=== PATIENT | male | born 1955 | race Caucasian/White ===

== ENCOUNTER 2023-03-21 08:27 | Outpatient (AMB) | payer MEDICARE, OTHER, SELFPAY ==
--- NOTE | 2023-03-21 08:34 | A.OFFVIS_ITS ---
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 Patient states I met with primary care for the last 4-5 years I found out i have blockeage on right carotid artery,he said that whenn you have a blpcakge it canaffect the memory. Allergies Seasonal Allergies Allergy (Unknown, Verified 03/21/23 08:45) Unknown Medication List - Last Reconciled 03/21/23 by CHILANGO Caldera aspirin 81 mg PO QDAY rosuvastatin 5 mg PO DAILY HPI HPI Comments History of Present Illness Details Right handed 67-yr-old male presents for neurological evaluation of: memory difficulties. PMH includes HLDF and right carotid artery stenosis. Pt reports that he is more forgetful over time. He reports that he is forgetting things that his recently told him. He states he is good with names of people, but noticing more difficulty with people he does not see more regularly. He is able to pay his bills w/o difficulty. 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 Denies frequently repeating himself, losing things. He is active but does not have a exercise routine- had started exercising prior to the pandemic but stopped during the pandemic. As a student, pt was an A student. He completed a bachelor's in psychology. 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 [facility] Surgical History (Updated 03/21/23 @ 08:46 by CHARITY Sofia) [place] teeth extracted Family History (Updated 03/21/23 @ 08:47 by CHARITY Sofia) Father Myocardial infarction Lung cancer Mother Hypertension Social History Alcohol intake: current Patient Tobacco Use Status: Never used Tobacco Review of Systems Const All systems reviewed & are unremarkable except as noted in HPI and below Physical Exam Vital Signs: Last Vital Signs BP 128/84 03/21/23 08:44 BMI result Body Mass Index 23.9 Const General: cooperative and no acute distress Orientation/consciousness: patient oriented x3 HEENT Head: Yes normocephalic Resp Effort & Inspection: normal respiratory effort and able to speak in complete sentences Auscultation: clear to auscultation bilaterally Cardio Other: No carotid bruits appreciated Jugular venous distension: no JVD Rate: regular rate Rhythm: regular rhythm Neuro General: patient oriented x3, CN's II-XI intact bilaterally and deep tendon reflexes 2+ bilaterally Gait exam (Neuro): Normal gait present Motor exam (neuro): 5/5 motor strength present throughout Psych Appearance: grossly normal Mental Status: mental status grossly normal Speech and movement: Normal speech and movement present Affect: normal affect Attitude: cooperative Thought process: Normal thought process present Thought content: Normal thought content present Insight: Good insight present (Psych) Orientation What is the (year) (season) (date) (day) (month)?: year, season, date, day and month Where are we (state) (county) (town or city) (hospital) (floor)?: state, county, town or city, hospital/clinic and floor Registration Name of 3 unrelated objects clearly and slowly, then ask patient to repeat all 3 of them. (1st repeat determines score. Make sure they can repeat all three): object 1, object 2 and object 3 Attention & Calculation (CHOOSE ONE) Spell WORLD backwards (DLROW): 5 letters Recall Ask patient to repeat the 3 items from question #3.: object 1, object 2 and obj ect 3 Language Show patient a wristwatch & ask what it is. Repeat for pencil.: watch and pencil Ask the patient to repeat the phrase 'No ifs, ands, or buts' after you.: correct Ask the patient to 'take a piece of paper with their right hand' 'fold paper in half' 'place paper on floor': take paper in right hand, fold paper in half and place paper on floor Print the sentence 'CLOSE YOUR EYES' on a piece. If patient actually closes eyes then score.: followed written direction Give patient a blank piece of paper & ask to write a sentence. Score if it contains a noun & verb.: sentence contains subject and verb Ask patient to copy figure of intersecting pentagons exactly. Score if all 10 angles & 2 intersects are included.: all 10 angles present & 2 are intersected Score Score: 30 Assessment & Plan Assessment & Plan (1) Poor short-term memory: Comment: Possible normal age-related changes vs MCI vs early vascular dementia Code(s): R41.3 - Other amnesia Plan MMSE 30/30 Good clock drawing- pt did draw hands prior to instructions, but dilan them easily (although hands extended equal lengths) on redirection. Increase physical activity- both strength and aerobic training- pt has previously gone to [facility]. Discussed obtaining brain MRI w/o to assess for intracranial vascular lesions in setting of HLD and right CA stenosis 70%- pt will consider. F/u in 6 months or sooner prn. Coding Level of Care Code New Pt Level 3 (30236) Diagnoses Poor short-term memory R41.3
[2023-03-21 08:44] VITALS: BP 128/84; BMI 23.9
== END 2023-03-21 09:51 | disposition home or self-care (01) ==
PROVIDERS: Visit Provider Nurse Practitioner Family
DX: R41.3 Other amnesia (principal)
CPT/HCPCS: 99203

== ENCOUNTER → 2023-03-21 08:27 | Outpatient (BNVA) | payer MEDICARE, OTHER, SELFPAY | PROVIDERS: Visit Provider Nurse Practitioner Family | DX: R41.3 Other amnesia (principal) | CPT/HCPCS: 99202 ==

== ENCOUNTER 2023-09-23 07:58 | Outpatient (AMB) | payer MEDICARE, OTHER, SELFPAY ==
--- NOTE | 2023-09-23 08:08 | A.OFFVIS_ITS ---
Vital Signs 09/23/23 08:17 Height 6 ft Weight 180 lb BMI 24.4 BP 115/62 Blood Pressure Location Lt brachial Position Sitting Pulse 55 Pulse Source Pulse Oximeter Pulse Oximetry (%) 97 Oxygen Delivery Method Room Air Intake Visit Reasons: 6 mo f/u Memory deficit-LVM Intake Note: Patient presents for 6 months f/u. Focusing on more activities since the weather is getting better. Not to focused on his memory loss. Allergies Seasonal Allergies Allergy (Unknown, Verified 09/23/23 08:17) Unknown HPI Comments Details: 68-yr-old male presents for f/u visit. Pt denies any significant interval medical changes. He has not been noticing his cognition as much- not paying as much attention to whether he is forgetting things as much. He did not increase his activity over the winter. However, he has becoming more physically active since the weather has warmed, he has been more active doing yard work. he is still socially active. He follows w/ vascular- has annual carotid US. [facility] Surgical History [place] teeth extracted Family History Father Myocardial infarction Lung cancer Mother Hypertension Social History Alcohol intake: current Patient Tobacco Use Status: Never used Tobacco Physical Exam Vital Signs: Last Vital Signs Pulse 55 09/23/23 08:17 BP 115/62 09/23/23 08:17 Pulse Ox 97 09/23/23 08:17 Oxygen Delivery Method Room Air 09/23/23 08:17 BMI result Body Mass Index 24.4 Const General: cooperative and no acute distress Orientation/consciousness: patient oriented x3 Resp Effort & Inspection: normal respiratory effort and able to speak in complete sentences Neuro General: patient oriented x3 Cranial nerves: Yes CN's II-XII intact bilaterally Cognition (Neuro): normal cognition Psych Appearance: grossly normal Mental Status: mental status grossly normal Speech and movement: Normal speech and movement present Affect: normal affect Attitude: cooperative Assessment & Plan Assessment & Plan (1) Poor short-term memory: Comment: Possible normal age-related changes vs MCI vs early vascular dementia Code(s): R41.3 - Other amnesia Category: Medical Plan Improved cognition. Previous: MMSE 30/30 Good clock drawing- pt did draw hands prior to instructions, but dilan them easily (although hands extended equal lengths) on redirection. Again increase physical activity- both strength and aerobic training- pt encouraged to find something he enjoys doing and establsih an exericse schedule. He previously went to [place]. Continue social and cognitively stimulating activities. Continue ASA and statin. If cognitive s/s worsen, consider brain MRI w/o to assess for intracranial vascular lesions in setting of HLD and right CA stenosis 70%. F/u w/ vascular sx as scheduled. F/u in 12 months or sooner prn. Coding Level of Care Code Est Pt Level 3 (17668) Diagnoses Poor short-term memory R41.3
[2023-09-23 08:17] VITALS: BP 115/62; PULSE 55; O2SAT 97; BMI 24.4
== END 2023-09-23 08:52 | disposition home or self-care (01) ==
PROVIDERS: PCP Internal Medicine; Visit Provider Nurse Practitioner Family
DX: R41.3 Other amnesia (principal)
CPT/HCPCS: 99213

== ENCOUNTER → 2023-09-23 07:58 | Outpatient (BNVA) | payer MEDICARE, OTHER, SELFPAY | PROVIDERS: PCP Internal Medicine; Visit Provider Nurse Practitioner Family | DX: R41.3 Other amnesia (principal); Z79.82 Long term (current) use of aspirin; Z79.899 Other long term (current) drug therapy | CPT/HCPCS: 99212 ==

== ENCOUNTER 2025-02-15 08:56 | Outpatient (AMB) | payer MEDICARE, OTHER, SELFPAY ==
[2025-02-15 08:59] VITALS: BP 140/60; PULSE 76; O2SAT 98
--- NOTE | 2025-02-15 08:59 | A.OFFVIS_ITS ---
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 Pt denies any significant interval medical changes. He has not been noticing his cognition as much- not paying as much attention to whether he is forgetting things as much. He has increased his physical activity- going to the [facility] twice a week- walking on the treadmill. As well as walking around his town a few miles with his , when the weather is nice. 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 He is sleeping well. He continues to be followed by vascular and yet he is all set to go if he has a home cough he can monitor not worried that it is leg problematic just more that the new mobile check at the [facility] to go as long as it is under 130/90 I am okay ER who knows Cardiology for annual carotid US. He is compliant with aspirin and statin. Most recent carotid duplex ultrasound was reassuring. BP is usually normotensive. April 2025 lipid panel was within normal limits Per [facility] and Cardiology notes: Cardiac Testing: * Exercise stress test 09/03/2022: 96% of MPHR with no chest pain and no ischemic EKG changes with exercise. No sustained arrhythmias during exercise. * Echocardiogram 09/17/2022 showed normal left ventricular size and wall thickness. Normal regional wall motion. LVEF 55 to 60% with normal left ventricular diastolic function. The RV is normal in size and systolic function. No significant valvular disease. * Carotid duplex 05/13/2024 showed minimal plaque with less than 50% stenosis in the left and right ICA. * 04/27/2024 lipid panel: * Cholesterol 172 * Triglycerides 101 * HDL 62 * LDL calculated 90 * VLDL cholesterol calc 20.2 * Non-HDL cholesterol (LDL + VLDL) 110 * Chol/HDL ratio 2.8 * EKG: Encounter Date: 07/22/24 ECG 12 lead Value Ventricular Rate ECG 59 Atrial Rate 59 P-R Interval 164 QRS Duration 80 Q-T Interval 376 QTc 372 P Wave [place] 60 R [place] 80 T [place] 50 ECG Interpretation ? ? Sinus bradycardiaOtherwise normal ECGNo previous ECGs available [facility] Surgical History [place] teeth extracted Family History Father Myocardial infarction Lung cancer Mother Hypertension Social History Alcohol intake: current Patient Tobacco Use Status: Never used Tobacco Physical Exam Vital Signs: Last Vital Signs Pulse 76 02/15/25 08:59 BP 140/60 H 02/15/25 08:59 Pulse Ox 98 02/15/25 08:59 Oxygen Delivery Method Room Air 02/15/25 08:59 Const General: cooperative and no acute distress Resp Effort & Inspection: normal respiratory effort and able to speak in complete sentences Neuro Other: Alert and oriented x3. Only 1 moment of memory lapse, when trying to recall who his vascular medical provider is General: moves all extremities Cranial nerves: Yes CN's II-XII intact bilaterally Cognition (Neuro): normal cognition Gait exam (Neuro): Normal gait present Psych Appearance: grossly normal Mental Status: mental status grossly normal Speech and movement: Normal speech and movement present Affect: normal affect Attitude: cooperative Assessment & Plan Assessment & Plan (1) Poor short-term memory: Comment: Possible normal age-related changes vs MCI vs early vascular dementia Code(s): R41.3 - Other amnesia Category: Medical Plan Patient continues to have improved cognition Previous: * MMSE 30/30 * Good clock drawing- pt did draw hands prior to instructions, but dilan them easily (although hands extended equal lengths) on redirection. Commended for his efforts to increase physical activity in making this a routine part of his weekly schedule. Continue social and cognitively stimulating activities. Today's initial BP was 140/60, on recheck it was 130/70. Patient attributes this to taking a couple of cups of coffee this morning and rushing to get to this appointment. No current shortness of breath or chest pain. Patient advised to monitor BP at home, and to notify PCP or Cardiology if BP is consistently above 130/90 Continue ASA and statin. If cognitive s/s worsen, consider brain MRI w/o to assess for intracranial vascular lesions in setting of HLD and coronary artery stenosis F/u w/ vascular and Cardiology as scheduled. F/u in 12 months or sooner prn. Coding Level of Care Code Est Pt Level 3 (95760) Diagnoses Poor short-term memory R41.3
--- OUTSIDE RECORDS SUMMARY | 2025-02-15 09:45 | XMS_ITS ---
Author Name [facility] Organization Unknown Care Team Organization Name Specialty Phone Email Start Date End Da te [facility] 12/29/2024 [facility] FRANCISCO JAVIER [facility] 01/16/2023 12/29/19 24
--- OUTSIDE RECORDS SUMMARY | 2025-02-15 09:45 | XMS_ITS | Clinical Summary ---
Author Organization [address] [place] [address] Address [address] [place] [address] Phone Care Team Providers Care Product Promoter Sales Person Name Role Phone Brian Wolfe MD Primary Care Provider [phone] Allergies Active Allergy Reactions Criticality Noted Date Comments Other 12/14/2018 Seasonal Medications multivitamin with minerals tablet Take 1 tablet by mouth daily. Active vit B complx/folic acid/lysine (B COMPLEX VITAMINS PO) Take 1 tablet by mouth daily. Active aspirin 81 mg EC tablet Take 1 tablet by mouth daily. Active rosuvastatin (CRESTOR) 5 mg tablet TAKE 1 TABLET BY MOUTH 1 TIME EACH DAY. 90 tablet 1 08/23/2024 Active Active Problems Problem Noted Date Diagnosed Date Carotid artery stenosis 03/13/2018 Overview (02/27/2024): Ultrasound 03/29 Last Assessment & Plan: The patient was found to have mild bilateral carotid artery stenosis on a carotid artery duplex done in March 2022. He will need a follow-up study done around March 2023 in order to evaluate for any progression in his coronary artery duplex. Assessment & Plan (07/22/2024 10:06 AM EDT): Patient has a history of bilateral carotid artery stenosis with recent carotid duplex showing minimal plaque and less than 50% stenosis in the left and right ICA. He was seen by vascular surgery June 2024. At this point, we will continue with annual monitoring and he will continue on aspirin and statin as prescribed. Orders: ECG 12 lead Colon polyp 01/13/2015 Overview (02/27/2024): CN 08/17 - no pathology report in old records Colonoscopy 03/06/17 - 2 descending colon polyps removed, diverticulosis, hemorrhoids; if adenomatous, repeat colonoscopy in 5 years - pathology showed tubular adenoma 01/06/2019 - bright red rectal bleeding for several months, likely hemorrhoidal; sigmoidoscopy to be scheduled Sigmoidoscopy 02/08/2019 - hemorrhoids, diverticulosis, bleeding internal hemorrhoids Onychomycosis 01/13/2015 Hyperlipidemia 11/30/2014 Overview (02/27/2024): Last Assessment & Plan: The patient has a history of hyperlipidemia. His last lipid panel on file from 2018 showed a total cholesterol of 204, triglycerides 96, HDL 59, and LDL 126. He has evidence of mild carotid artery stenosis noted on a recent carotid artery duplex. Therefore, the patient's cholesterol should be aggressively controlled and his LDL target is 70 or below. At this point, we will repeat his lipid panel to evaluate his lipid control and determine if he needs to start the patient on statin therapy. Assessment & Plan (07/22/2024 10:06 AM EDT): Patient has a history of hyperlipidemia. Last fasting lipid panel showed acceptable cholesterol control. We discussed the importance of cholesterol control given his history of carotid artery disease. He will continue to work on healthy lifestyle and diet and continue his current dose of rosuvastatin as prescribed. I have reviewed with the patient the importance of a heart healthy lifestyle which includes eating a low-fat low-salt diet, getting regular exercise, maintaining a healthy weight, not smoking, and following up with routine medical care. Resolved Problems Problem Noted Date Diagnosed Date Resolved Date Dyspnea 08/06/2022 07/22/2024 Overview (02/27/2024): Last Assessment & Plan: The patient has been experiencing exertional dyspnea. He denies any chest pain. The patient does have multiple risk factors for CAD including: Hyperlipidemia, carotid artery stenosis, family history of CAD. As such, we need to consider the possibility that his dizziness is anginal component. Therefore, we will schedule the patient for an exercise stress test to rule out cardiac ischemia as a cause of his symptoms. We will also schedule the patient for an echocardiogram to rule out any underlying structural heart disease as a cause of his symptoms Immunizations Immunization Administration Dates Next Due Tdap Tetanus diptheria acell ular pertussis (Boostrix; Adacel) 7yo and older 03/13/2015 Surgical History Surgery Date Site/Laterality Comments WISDOM TOOTH EXTRACTION PROCEDURE: HISTORICAL WISDOM TEETH EXTRACTION COLONOSCOPY 2007 PROCEDURE: HISTORICAL COLONOSCOPY; COMMENT: ? adenomatous polyp COLONOSCOPY 12/05/2010 PROCEDURE: HISTORICAL COLONOSCOPY; COMMENT: Dr. Bryant - left tics, hemorrhoids. Repeat in 5 years. Medical History Medical History Date Comments Hyperlipidemia 11/30/2014 DX:Hyperlipidemi a Colon polyp 01/13/2015 DX:Colon polyp; COMMENT: IVETH 08/17 - no pathology report in old records Onychomycosis 01/13/2015 DX:Onychomycosis Family History Medical History Relation Name Comments No Known Problems Brother 1 No Known Problems Brother 2 No Known Problems Daughter 1 No Known Problems Daughter 2 Heart attack Father Hypertension Mother Other: Precancerous breast cancer Sister 1 No Known Problems Sister 2 No Known Problems Sister 3 No Known Problems Sister 4 No Known Problems Son Relation Name Status Comments Brother 1 Alive Healthy Brother 2 Alive Healthy Daughter 1 Alive Healthy Daughter 2 Alive Healthy Father (Age 72) Jaw cancer , [place] (age 60) Mother (Age 79) Lung issue , HTN Sister 1 Alive Healthy Sister 2 Alive Healthy Sister 3 Alive Healthy Sister 4 Alive Healthy Son Alive Healthy Social History Tobacco Use Types Packs/Day Years Used Date Smoking Tobacco: Never Smokeless Tobacco: Never Alcohol Use Standard Drinks/Week Comments Yes 0 (1 standard drink = 0.6 oz pur e alcohol) occ Sex and Gender Information Value Date Recorded Sex Assigned at Not on file Legal Sex Male 11:46 AM EST Gender Identity Not on file Sexual Orientation Not on file Obstetrics History Last Filed Vital Signs Vital Sign Reading Time Taken Comments Blood Pressure 118/82 07/22/2024 9:03 AM EDT Pulse 59 07/22/2024 9:03 AM EDT Temperature 36.3 C (97.4 F) 04/14/2024 8:30 AM EST Respiratory Rate - - Oxygen Saturation 98% 07/22/2024 9:03 AM EDT Inhaled Oxygen Concentration - - Weight 82.6 kg (182 lb 1.6 oz) 07/22/2024 9:03 A M EDT Height 182.9 cm (6') 07/22/2024 9:03 AM EDT Body Mass Index 24.7 07/22/2024 9:03 AM EDT Plan of Treatment Upcoming Encounters Date Type Department Care Team (Late st Contact Info) Description 04/18/2025 11:15 AM EST Office Visit Internal Medicine - [place] [address] [place] [address] Brian Wolfe MD [address] [facility] [address] [place] [address] 06/16/2025 9:30 AM EST Office Visit Vascular Surgery - [place] [address] [place] [address] Martha Glasgow MD [address] [place] [phone] Health Maintenance Due Date Last Done Comments Pneumococcal Vaccine: 50+ Years (1 of 1 - PCV) 07/20/2005 Zoster Vaccines (1 of 2) 07/20/2005 Colorectal Cancer Screening: Colonoscopy 03/06/2022 03/06/2017 Social Influencers of Health Screening 04/20/2022 Depression Screening 05/12/2024 10/13/2023 Falls Risk Assessment 10/12/2024 10/13/2023 Medicare Annual Wellness Visit 10/12/2024 10/13/2023 COVID-19 Vaccine (1 - 2023-2 5 season) 2025 Influenza Vaccine (#1) 2025 DTaP,Tdap,and Td Vaccines (2 - Td or Tdap) 03/13/2025 03/13/2015 Cholesterol Screening (Lipid Panel) 04/27/2029 04/27/2024, 03/13/2018 RSV Immunization Adult Patients (1 - 1-dose 75+ series) 07/20/2030 Hepatitis C Screening Completed 06/01/2016 HIB Vaccines Aged Out No longer eligi ble based on patient's age to complete this topic HPV Vaccines Aged Out No longer eligi ble based on patient's age to complete this topic Hepatitis A Vaccines Aged Out No long er eligible based on patient's age to complete this topic Hepatitis B Vaccines Aged Out No long er eligible based on patient's age to complete this topic IPV Vaccines Aged Out No longer eligi ble based on patient's age to complete this topic MMR Vaccines Aged Out No longer eligi ble based on patient's age to complete this topic Meningococcal ACWY Vaccine Aged Out N o longer eligible based on patient's age to complete this topic Meningococcal B Vaccine Aged Out No l onger eligible based on patient's age to complete this topic RSV Immunization Patients Under 20 months Aged Out No longer eligible b ased on patient's age to complete this topic Varicella Vaccines Aged Out No longer eligible based on patient's age to complete this topic Procedures Procedure Name Priority Date/Time Associated Diagnosis Comments LIPID PANEL WITH REFLEX TO DIRECT LDL Routine 04/27/2024 8:26 AM EST Stenosis of carotid artery, unspecified laterality Pure hypercholesterolemia DEPRESSION SCREENING Routine 10/13/2023 FALLS RISK ASSESSMENT Routine 10/13/2023 COLONOSCOPY Routine 03/06/2017 HEPATITIS C SCREENING Routine 06/01/2016 from Last 3 Months or Most Recently Relevant to Health Maintenance Results * Lipid panel with reflex to direct LDL (04/27/2024 8:26 AM EST) Cholesterol 172 0 - 200 mg/dL LAB CHEMISTRY METHOD 04/27/2024 10:07 AM EST [facility] Triglycerides 101 0 - 150 mg/dL LAB CHEMISTRY METHOD 04/27/2024 10:07 AM EST [facility] HDL 62 >=40 mg/dL LAB CHEMISTRY METHOD 04/27/2024 10:07 AM EST [facility] LDL Calculated 90 0 - 100 mg/dL LAB CHEMISTRY METHOD 04/27/2024 10:07 AM [facility] VLDL Cholesterol Hany 20.2 mg/dL LAB CHEMISTRY METHOD 04/27/2024 10:07 AM EST [facility] Non HDL Chol. (LDL+VLDL) 110 <145 mg/dL LAB CHEMISTRY METHOD 04/27/2024 10:07 AM EST [facility] Chol/HDL Ratio 2.8 0.0 - 4.4 LAB CHEMISTRY METHOD 04/27/2024 10:07 AM EST [facility] Blood Venous blood specimen / Unknown Venipuncture / Unknown 04/27/2024 8:26 AM EST 04/27/2024 8:26 AM EST Brian Wolfe MD LAB BLOOD ORDERABLES Final Resul t [facility] [address] [place] [address], [place] [phone] * Falls Risk Assessment (10/13/2023) [facility] Falls Risk Assessment abstracted Historical Provider HEALTH MAINTENANCE Final Result * Depression Screening (10/13/2023) Pathologist [facility] Depression Screening abstracted Historical Provider HEALTH MAINTENANCE Final Result * Colonoscopy (03/06/2017) Pathologist [facility] Colonoscopy no interpretation , abstracted Anatomical Region Laterality Modality Other Historical Provider HEALTH MAINTENANCE Final Result * Hepatitis C Screening (06/01/2016) Pathologist [facility] Hepatitis C Screening abstracted Historical Provider HEALTH MAINTENANCE Final Result from Last 3 Months or Most Recently Relevant to Health Maintenance Insurance MEDICARE [facility] Care Teams Product Promoter Sales Person Relationship Specialty Start Date End Date Brian Wolfe MD [address] [address] PCP - General Internal Medicine 10/10/21
== END 2025-02-15 09:45 | disposition home or self-care (01) ==
LOC: HO.HSMS 08:56
PROVIDERS: PCP Internal Medicine; Visit Provider Nurse Practitioner Family
DX: R41.3 Other amnesia (principal)
CPT/HCPCS: 99213

== ENCOUNTER → 2025-02-15 08:56 | Outpatient (BNVA) | payer MEDICARE, OTHER, SELFPAY | PROVIDERS: PCP Internal Medicine; Visit Provider Nurse Practitioner Family | DX: R41.3 Other amnesia (principal) | CPT/HCPCS: 99212 ==